=== PATIENT | female | born 1990 | race Caucasian/White ===

== ENCOUNTER 2018-01-14 07:14 | Emergency (ER) | payer MEDICAID ==
[2018-01-14 07:21] VITALS: O2SAT 98
--- NOTE | 2018-01-14 07:29 | EDPHY ---
H & P Time Seen by Provider: 01/14/18 07:28 HPI/ROS: Chief complaint. Trouble taking deep breath HPI. 27-year-old female presents emergency department with shortness of breath. She notes for the past 2 days she has had trouble taking a deep breath. This morning she had dyspnea on exertion while walking across campus. Taking a deep breath makes her cough but otherwise she has no fever or cough. Symptoms are on both sides of her chest. It feels pressure and sharp. She had a pleural effusion 2 years ago secondary to inflammation. She carries a diagnosis of lupus. She denies abdominal symptoms other than decreased appetite. No unusual leg pain or swelling. No recent travel. No history of pulmonary embolus. ROS Constitutional. no fever/chills, no weakness Eyes. no problems with vision ENT. no sore throat, no nasal drainage Cardiovascular. Chest pain with deep breathing Respiratory. Shortness of breath and cough with deep breathing Abdominal. No abdominal pain but decreased appetite . no problems urinating MS. no calf pain/swelling, no neck/back pain, no joint pain Skin. no rash Lymph. no swollen glands Neuro. no headache, no dizziness, no difficulty walking or with speech Past Medical/Surgical History: Pleural effusion, lupus, hypothyroid Social History: Single, nonsmoker, no alcohol Smoking Status: Never smoked Physical Exam: General Appearance: Alert well-developed female moderate distress vital signs significant for heart rate 113 Eyes: Pupils equal and round no pallor or injection. ENT, Mouth: Mucous membranes are moist. Respiratory: No retractions. Decreased breath sounds right lung base. Cardiovascular: Regular rate and rhythm with tachycardia Gastrointestinal: Abdomen is soft and nontender, no masses, bowel sounds normal. Neurological: Awake and alert, sensory and motor exams grossly normal. Skin: Warm and dry, no rashes. Musculoskeletal: Neck is supple nontender. Extremities symmetrical, full range of motion. Psychiatric: Patient is oriented X 3, there is no agitation. Constitutional: Initial Vital Signs Temperature (C) 36.9 C 01/14/18 07:17 Heart Rate 113 H 01/14/18 07:17 Respiratory Rate 20 01/14/18 07:17 Blood Pressure 144/96 H 01/14/18 07:17 O2 Sat (%) 98 01/14/18 07:17 O2 Delivery Mode Room Air Allergies/Adverse Reactions: No Known Allergies Allergy (Unverified 01/14/18 07:21) Home Medications: Medication Instructions Recorded Hydroxychloroquine Sulfate 01/14/18 LORazepam [Ativan] 1 mg PO Q6-8PRN PRN #10 tab 01/14/18 Levothyroxine 01/14/18 Medical Decision Making - Diagnostics EKG Interpretation: EKG interpreted by me shows sinus tachycardia normal interval and axis. QRS is normal. No significant ST elevation or depression. Acute 3 T3 pattern but not S1 pattern is noted. Rate is 103 Imaging Results: Imaging Impressions Chest/Thorax CTA 01/14/18 07:48 Impression: 1. Motion limited study with no visible pulmonary embolus. 2. Tiny left pleural effusion. 3. 4-mm left lower lobe nodule. If the patient is a smoker or is high risk, unenhanced low dose chest CT for follow up in 12 months is considered optional. Otherwise, no further follow up is needed per Fleischner Society criteria. 4. Fatty infiltration of the liver. Findings discussed with Dr. Hiram Dawkins on January 14, [address] scan shows no evidence pulmonary embolus. Small left pleural effusion. Reviewed by me and discussed with Dr. Soto Procedures: IV normal saline with [address] angio chest. Indication is chest pain, shortness of breath, lupus, previous pleural effusion and pleurisy of unclear etiology. Pretest probability is high ED Course/Re-evaluation: Re-evaluation 10 10 a.m. Patient is stable. The patient and I discussed imaging and lab results. We discussed treatment plan including criteria for return importance of follow-up and further evaluation. She expresses understanding Differential Diagnosis: I considered pulmonary embolus, pleural effusion, pneumonia, pneumothorax. There appears to be a an anxiety component and patient agrees that this is likely true - Data Points Laboratory Results: Laboratory Results 01/14/18 07:47 01/14/18 07:47 01/14/18 01/14/18 01/14/18 07:47 07:47 07:47 WBC RBC Hgb Hct MCV MCH MCHC RDW Plt Count MPV Neut % (Auto) Lymph % (Auto) Alcorn % (Auto) Eos % (Auto) Baso % (Auto) Nucleat RBC Rel Count Absolute Neuts (auto) Absolute Lymphs (auto) Absolute Monos (auto) Absolute Eos (auto) Absolute Basos (auto) Absolute Nucleated RBC Immature Gran % Immature Gran # Platelet Estimate Polychromasia Hypochromasia Microcytic Cells Schistocytes Smear Review By PT 13.5 SEC SEC (12.0-15.0) INR 1.01 (0.83-1.16) D-Dimer < 0.27 ug/mLFEU ug/mLFEU (0.00-0.50) Sodium 141 mEq/L mEq/L (135-145) Potassium 3.3 mEq/L L mEq/L (3.5-5.2) Chloride 104 mEq/L mEq/L (97-110) Carbon Dioxide 18 mEq/l L mEq/l (22-31) Anion Gap 19 mEq/L H mEq/L (8-16) BUN 8 mg/dL mg/dL (7-23) Creatinine 0.7 mg/dL mg/dL (0.6-1.0) Estimated GFR > 60 Glucose 109 mg/dL H mg/dL (70-100) Calcium 9.5 mg/dL mg/dL (8.5-10.4) Troponin I < 0.012 ng/mL ng/mL (0.000-0.034) Beta HCG, Qual NEGATIVE 01/14/18 07:47 WBC 4.03 10^3/uL 10^3/uL (3.80-9.50) RBC 4.92 10^6/uL 10^6/uL (4.18-5.33) Hgb 11.0 g/dL L g/dL (12.6-16.3) Hct 33.7 % L % (38.0-47.0) MCV 68.5 fL L fL (81.5-99.8) MCH 22.4 pg L pg (27.9-34.1) MCHC 32.6 g/dL g/dL (32.4-36.7) RDW 14.0 % % (11.5-15.2) Plt Count 199 10^3/uL 10^3/uL (150-400) MPV 10.2 fL fL (8.7-11.7) Neut % (Auto) 75.9 % H % (39.3-74.2) Lymph % (Auto) 19.1 % % (15.0-45.0) Alcorn % (Auto) 4.0 % L % (4.5-13.0) Eos % (Auto) 0.5 % L % (0.6-7.6) Baso % (Auto) 0.5 % % (0.3-1.7) Nucleat RBC Rel Count 0.0 % % (0.0-0.2) Absolute Neuts (auto) 3.06 10^3/uL 10^3/uL (1.70-6.50) Absolute Lymphs (auto) 0.77 10^3/uL L 10^3/uL (1.00-3.00) Absolute Monos (auto) 0.16 10^3/uL L 10^3/uL (0.30-0.80) Absolute Eos (auto) 0.02 10^3/uL L 10^3/uL (0.03-0.40) Absolute Basos (auto) 0.02 10^3/uL 10^3/uL (0.02-0.10) Absolute Nucleated RBC 0.00 10^3/uL 10^3/uL (0-0.01) Immature Gran % 0.0 % % (0.0-1.1) Immature Gran # 0.00 10^3/uL 10^3/uL (0.00-0.10) Platelet Estimate ADEQUATE (ADEQ) Polychromasia 1+ H Hypochromasia 1+ H Microcytic Cells 2+ H Schistocytes 1+ H Smear Review By Pending PT INR D-Dimer Sodium Potassium Chloride Carbon Dioxide Anion Gap BUN Creatinine Estimated GFR Glucose Calcium Troponin I Beta HCG, Qual Medications Given: Discontinued Medications Sodium Chloride (Ns) 1,000 mls @ 0 mls/hr IV ONCE ONE; Wide Open PRN Reason: Protocol Stop: 01/14/18 07:49 Last Admin: 01/14/18 08:01 Dose: 1,000 mls Departure - Departure Disposition: Home, Routine, Self-Care Clinical Impression: Dyspnea Qualifiers: Dyspnea type: dyspnea on exertion Qualified Code(s): R06.09 - Other forms of dyspnea Condition: Good Instructions: Shortness of Breath (ED), Anxiety (ED) Additional Instructions: Activity as tolerated. Ativan 1 pill every 6-8 hours as needed for anxiety. Return for worsening symptoms over the weekend. Follow up with [facility] and Dr. Cummins, rheumatology Referrals: NONE *PRIMARY CARE P,. [Primary Care Provider] - As per Instructions [facility] [Outside] - 2-3 days without fail Rajat Cummins MD [[facility] [place]] - 5-7 days, call for appt. Prescriptions: LORazepam [Ativan] 1 mg PO Q6-8PRN PRN #10 tab PRN Reason: Anxiety
[2018-01-14] MEDS ORDERED: NS 1,000 ML IV ONE (07:48)
--- NOTE | 2018-01-14 07:59 | CPEKG ---
Heart Rate: 103 RR Interval: 583 P-R Interval: 117 QRSD Interval: 90 QT Interval: 356 QTC Interval: 466 P Yoder: 73 QRS Yoder: 78 T Wave Yoder: 7 EKG Severity - BORDERLINE ECG - EKG Impression: SINUS TACHYCARDIA EKG Impression: BORDERLINE Q WAVES IN INFERIOR LEADS EKG Impression: INFERIOR Q WAVES, PROBABLY NORMAL VARIATION Electronically Signed By: Hiram Dawkins 14-Jan-2018 14:36:26
[2018-01-14 08:01] LABS: PLATELET COUNT 199 10^3/uL (150-400)
[2018-01-14 08:06] LABS: INR 1.01 (0.83-1.16); PROTIME(PATIENT) 13.5 SEC (12.0-15.0)
[2018-01-14] MEDS ORDERED: IOPAMIDOL (ISOVUE 370) 100 ML BTL IV ONE (08:50)
[2018-01-14 10:45] VITALS: RESP 16
[2018-01-14 12:38] VITALS: BP 123/91; PULSE 80; TEMP 98.6
== END 2018-01-14 12:38 | disposition home or self-care (01) ==
DX: R06.09 Other forms of dyspnea (principal); E86.9 Volume depletion, unspecified
CPT/HCPCS: Q9967